=== PATIENT | female | born 1990 | race Two or more races ===

== ENCOUNTER 2016-08-28 17:09 | Outpatient (CLI) | payer BC ==
[2016-08-28] MEDS ORDERED: Lactated Ringers 1,000 ML IV SCH (19:15)
--- NOTE | 2016-08-28 22:53 | HP ---
DATE OF : 1990 PRIMARY CARE PHYSICIAN: None PCP CHIEF COMPLAINT: Fall. HISTORY: This is a 25-year-old female. She is -0-0-1. She slipped on the ice in her driveway and fell on her back. She denies hitting her stomach. She has been having crampiness throughout her early and she noted the cramping increased after the fall and she experienced low back pain, therefore she called the office and she was instructed to come to Labor and Delivery for further evaluation. She is currently 23 weeks and 5 days gestation. She is blood type O positive, rubella immune. She has had one prior vaginal delivery. She did have cramping and contractions at approximately 28 weeks with that , but delivered at term. She denies any vaginal bleeding, vaginal discharge, loss of fluid. She reports positive movement, but some increase in the tightness and cramping since the time of the fall. She denies past surgical history. PAST MEDICAL HISTORY: Negative for chronic illness. 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 She is sexually active. She denies use of tobacco. She used alcohol prior to the , but none during the . She is . She denies use of any street drugs. REVIEW OF SYSTEMS: CONSTITUTIONAL: Negative for headache or visual changes. GI: Negative. CARDIOVASCULAR: Negative. PULMONARY: Negative. DERMATOLOGY: Negative. MUSCULOSKELETAL: Negative except for the low back pain. PHYSICAL EXAMINATION: VITAL SIGNS: Temperature is 97.1, blood pressure is 126/59, pulse is 78, respiratory rate is 18. heart tones are 135 with moderate variability, accelerations present up to 15 beats per minute. There are occasional variable decelerations. Contractions initially were every 2-3 minutes, after hydration they have spaced out to every 10-15 minutes and in the most recent 30 minutes has not had any contractions. GENERAL: She is alert and oriented. She is in no acute distress. NECK: Supple without lymphadenopathy or thyromegaly. BACK: Examination reveals no CVA tenderness. She is slightly tender over the sacral area. ABDOMEN: Soft, gravid, nontender. Fundus is soft. No palpable contractions at this time. EXTREMITIES: Trace edema. ASSESSMENT AND PLAN: A 23 and 5/7th week intrauterine with trauma due to a fall in the driveway. heart tones are category 1; however, she is having irregular contractions. They have improved with IV hydration; however, we will proceed with abruption labs including CBC, PT, PTT and Kleihauer-Betke, and fibrinogen. Due to her history of contractions and sensation of low back and pelvic pressure, we will proceed with a transvaginal ultrasound for cervical length. Abdominal ultrasound will be performed for evaluation of the placenta, although I reviewed with her that contractions and labs are more sensitive than the ultrasound. She will be monitored a minimum of 4 hours. If contractions resolve by that time, she may be dismissed. If contractions persist, she will be monitored for full 24 hours. ASHLEIGH / AN /[id number]
--- NOTE | 2016-08-31 19:18 | US ---
EXAM DATE: 08/28/16 PATIENT'S AGE: 25 Patient: VLAD TRAVIS Facility: [place], [place] Site . Site : 1990 Study: US OB Pelvis [id number]/10/2017 8:49:01 PM Ordering Physician: Timmy Delvalle Final Report: INDICATION: Fall, evaluate placenta and check cervical length TECHNIQUE: Ultrasound OB pelvis transabdominal. Real-time doyle-scale imaging of the fetus was performed as well as color Doppler imaging of the placenta. COMPARISON: None FINDINGS: Sonographic imaging demonstrates a single living intrauterine gestation. Fetus demonstrates a regular cardiac rate of 142 beats per minute. The placenta lies posterior without evidence of placental abruption. Amniotic fluid volume appears normal with an DAMON of 17.5 cm. Maternal cervical length is 4.9 cm. IMPRESSION: 1.Single viable intrauterine . 2.No evidence for placental abruption. 3. Maternal cervical length is 4.9 cm. Dictated by Paige Paul MD @ Aug 28 2016 8:54PM (Electronic Signature) Report Signed by Proxy and Original Signed Document filed in the Medical Record. MTDD
--- NOTE | 2016-09-01 10:32 | US ---
EXAM DATE: 08/28/16 PATIENT'S AGE: 25 Patient: VLAD TRAVIS Facility: [facility] Site . Site : 1990 Study: US-OB Pelvis [id number]/10/2017 8:49:01 PM Ordering Physician: Timmy Delvalle Final Report: INDICATION: Fall, evaluate placenta and check cervical length TECHNIQUE: Ultrasound OB pelvis transabdominal. Real-time doyle-scale imaging of the fetus was performed as well as color Doppler imaging of the placenta. COMPARISON: None FINDINGS: Sonographic imaging demonstrates a single living intrauterine gestation. Fetus demonstrates a regular cardiac rate of 142 beats per minute. The placenta lies posterior without evidence of placental abruption. Amniotic fluid volume appears normal with an DAMON of 17.5 cm. Maternal cervical length is 4.9 cm. IMPRESSION: 1.Single viable intrauterine . 2.No evidence for placental abruption. 3. Maternal cervical length is 4.9 cm. Dictated by Paige Paul MD @ Aug 28 2016 8:54PM Signed by: Paige Paul MD @08/28/2016 8:58:15 PM (Electronic Signature) Report Signed by Proxy and Original Signed Document filed in the Medical Record. MTDD
== END 2016-08-28 22:35 | disposition home or self-care (01) ==
LOC: MW.OBCHECK 17:09 → MW.OB 17:12 → MW.OBCHECK 22:35
PROVIDERS: ATTEND Obstetrics & Gynecology
DX: O26.892 Other specified pregnancy related conditions, second trimester (principal); Z3A.23 23 weeks gestation of pregnancy; M54.5 Low back pain; W18.39XA Other fall on same level, initial encounter; Y92.008 Other place in unspecified non-institutional (private) residence as the place of occurrence of the external cause
CPT/HCPCS: 36415; 59025; 76815; 76817; 85027; 85384; 85610; 85730; 96360; 96361; J7120

== ENCOUNTER 2016-10-28 17:02 | Outpatient (CLI) | payer BC | END 2016-10-28 18:42 | disposition home or self-care (01) | LOC: MW.OBCHECK 17:02 → MW.OB 17:03 → MW.OBCHECK 18:42 | PROVIDERS: ATTEND Obstetrics & Gynecology | DX: O99.89 Other specified diseases and conditions complicating pregnancy, childbirth and the puerperium (principal); M54.5 Low back pain | CPT/HCPCS: 59025; 81003 ==

== ENCOUNTER 2016-12-16 18:14 | Inpatient (IN) | payer BC ==
[2016-12-16] MEDS ORDERED: Misoprostol 200 MCG Tab PO PRN (18:40)
[2016-12-16] MEDS ORDERED: Sodium Chloride 0.9% 10 ML Syringe FLUSH PRN (18:40)
[2016-12-16] MEDS ORDERED: Lidocaine 1% 50 ML MDV INJECT PRN (18:40)
[2016-12-16] MEDS ORDERED: Nalbuphine 10 MG/1 ML Vial IVPUSH PRN (18:40)
[2016-12-16] MEDS ORDERED: Water For Irrigation,Sterile 1,000 ML Container IRR PRN (18:40)
[2016-12-16] MEDS ORDERED: Butorphanol 1 MG/ML SDV IVPUSH PRN (18:40)
[2016-12-16] MEDS ORDERED: Methylergonovine 0.2 MG/1 ML Amp IM PRN (18:40)
[2016-12-16] MEDS ORDERED: Carboprost Tromethamine 250 MCG/1 ML Amp IM PRN (18:40)
[2016-12-16] MEDS ORDERED: Sodium Chloride 0.9% 2.5 ML Syringe FLUSH PRN (18:40)
[2016-12-16] MEDS ORDERED: Lactated Ringers 1,000 ML IV SCH (18:45)
[2016-12-16] MEDS ORDERED: Oxytocin/Lactated Ringers 30 UNIT/500 ML BAG IV SCH (18:45)
[2016-12-16] MEDS ORDERED: Oxytocin 10 Units/1 ML SDV ONE (18:55)
[2016-12-16] MEDS ORDERED: Bisacodyl 10 MG Supp RECTAL PRN (19:08)
[2016-12-16] MEDS ORDERED: Lanolin 100% Cream 7 GM Tube TOP PRN (19:08)
[2016-12-16] MEDS ORDERED: Ibuprofen 400 MG Tab PO PRN (19:08)
[2016-12-16] MEDS ORDERED: Benzocaine/Menthol 20%-0.5% Spray 78 GM Cannister TOP PRN (19:08)
[2016-12-16] MEDS ORDERED: Witch Hazel Medicated Pads 40/Jar TOP PRN (19:08)
[2016-12-16] MEDS ORDERED: oxyCODONE 5 MG Tab PO PRN (19:08)
[2016-12-16] MEDS ORDERED: Acetaminophen 500 MG Tab PO PRN ×2 (19:08)
[2016-12-16] MEDS ORDERED: Docusate Sodium 100 MG Cap PO PRN (19:08)
[2016-12-16] MEDS ORDERED: Oxytocin 10 Units/1 ML SDV IM ONE (19:09)
[2016-12-16] MEDS: Ibuprofen 800 MG Tab PO PRN (20:28)
[2016-12-17] MEDS: Ibuprofen 800 MG Tab PO PRN ×2 (02:28→11:04)
--- NOTE | 2016-12-17 02:33 | OR ---
SURGEON: Laury Paula M.D. DATE OF PROCEDURE: 12/16/2016 PREOPERATIVE DIAGNOSES: 1. A 39 and 3 weeks intrauterine . 2. Active labor. POSTOPERATIVE DIAGNOSES: 1. A 39 and 3 weeks intrauterine . 2. Active labor. PROCEDURE: Spontaneous vaginal delivery, intact perineum, precipitous. ESTIMATED BLOOD LOSS: 300 mL. ANESTHESIA: None. COMPLICATIONS: None. FINDINGS: Viable male, score 8 at 1 minute, 9 at 5 minutes. Weight of 3030 g. Spontaneous delivery, intact placenta, 3-vessel cord. DISPOSITION: to nursery, mom in LDRP. DESCRIPTION OF PROCEDURE: Bebe is a 26-year-old, G2, P1-0-0-1, at 39 and 3 weeks gestational age, who presented the evening of 12/16/2016 with regular contractions every 3-5 minutes for the past 2 hours. On initial examination, she was found to be 7 cm, 100% effaced, 0 station. Membranes still intact. She was admitted. Routine labs were attempted to be drawn, but during this interval, she very quickly progressed to complete, with a sudden urge to push. I was called for her delivery, and on route, the patient delivered precipitously with attending nurse at her side. Upon my arrival, the patient was holding the who had good tone and good color. The cord was clamped x2 and cut. Cord blood was obtained. Light pressure was applied while the placenta was delivered spontaneously intact. Vigorous fundal uterine massage was applied with 10 units Pitocin was delivered IM. Upon inspection of cervix, vaginal sidewalls, perineum, these were found to be intact. Uterus remained firm. Hemostasis evident. Sponge count is correct. The patient remained in LDRP. Infant in nursery. RONALDO / AN /[id number]
--- NOTE | 2016-12-17 08:48 | PCM.PNPP ---
- General Info Date of Service: 12/17/16 Functional Status: Reports: pain controlled, tolerating diet, ambulating, urinating - Review of Systems General: Reports: No Symptoms HEENT: Reports: no symptoms Pulmonary: Reports: no symptoms Cardiovascular: Reports: No Symptoms Gastrointestinal: Reports: No symptoms Genitourinary: Reports: no symptoms Musculoskeletal: Reports: no symptoms Skin: Reports: no symptoms Neurological: Reports: No Symptoms Psychiatric: Reports: no symptoms - General Info Date of Service: 12/17/16 - Patient Data Vital Signs - most recent: Last Vital Signs Temp 36.8 C 12/17/16 07:40 Pulse 66 12/17/16 07:40 Resp 16 12/17/16 07:40 BP 116/66 12/17/16 07:40 Pulse Ox 97 12/17/16 07:40 Weight - most recent: 83.007 kg Lab Results - last 24 hrs: Laboratory Results - last 24 hr 12/16/16 12/16/16 12/17/16 Range/Units 19:00 19:00 05:16 WBC 12.95 H (4.0-11.0) K/uL RBC 3.91 L (4.30-5.90) M/uL Hgb 12.4 11.3 L (12.0-16.0) g/dL Hct 35.5 L 32.7 L (36.0-46.0) % MCV 90.8 (80.0-98.0) fL MCH 31.7 (27.0-32.0) pg MCHC 34.9 (31.0-37.0) g/dL RDW Std Deviation 42.6 (28.0-62.0) fl RDW Coeff of Cirilo 13 (11.0-15.0) % Plt Count 197 (150-400) K/uL MPV 10.40 (7.40-12.00) fL Nucleated RBC % 0.0 /100WBC Nucleated RBCs # 0 K/uL Blood Type O POSITIVE Antibody Screen NEGATIVE Med Orders - Current: Current Medications Acetaminophen (Tylenol Extra Strength) 500 mg PO Q4H PRN PRN Reason: Pain Acetaminophen (Tylenol Extra Strength) 1,000 mg PO Q4H PRN PRN Reason: Pain Benzocaine/Menthol (Dermoplast Pain Relief 20%-0.5% [place]) 78 gm TOP ASDIRECTED PRN PRN Reason: Perineal Comfort Measure Last Admin: 12/16/16 20:29 Dose: 1 applic Bisacodyl (Dulcolax) 10 mg RECTAL .ONCE PRN PRN Reason: Constipation Carboprost Tromethamine (Hemabate Ds) 250 mcg IM ASDIRECTED PRN PRN Reason: Post Hemorrhage Docusate Sodium (Colace) 100 mg PO BID PRN PRN Reason: Constipation Emollient Ointment (Lansinoh Hpa) 0 gm TOP ASDIRECTED PRN PRN Reason: Sore Nipples Last Admin: 12/16/16 20:30 Dose: 1 applic Lactated Ringer's (Ringers, Lactated) 1,000 mls @ 150 mls/hr IV ASDIRECTED SHANTAL Oxytocin/Lactated Ringer's (Pitocin In Lr 30 Units/500 Ml) 30 unit in 500 mls @ 2 mls/hr IV TITRATE SHANTAL; 2 MUNITS/MIN PRN Reason: Protocol Stop: 12/17/16 18:44 Ibuprofen (Motrin) 400 mg PO Q4H PRN PRN Reason: Pain Ibuprofen (Motrin) 800 mg PO Q6H PRN PRN Reason: Pain Last Admin: 12/17/16 02:28 Dose: 800 mg Methylergonovine Maleate (Methergine) 0.2 mg IM ASDIRECTED PRN PRN Reason: Post Hemorrhage Oxycodone HCl (Oxycodone) 5 mg PO Q2H PRN PRN Reason: Pain Witch Kaela (Tucks) 1 pad TOP ASDIRECTED PRN PRN Reason: comfort care Last Admin: 12/16/16 20:29 Dose: 1 applic Discontinued Medications Butorphanol Tartrate (Stadol) 1 mg IVPUSH Q1H PRN PRN Reason: Pain Lidocaine HCl (Xylocaine 1%) 50 ml INJECT .ONCE PRN PRN Reason: Laceration repair Misoprostol (Cytotec) 200 mcg PO .ONCE PRN PRN Reason: Post Hemorrhage Nalbuphine HCl (Nubain) 10 mg IVPUSH Q1H PRN PRN Reason: Pain (severe 7-10) Stop: 12/16/16 20:41 Oxytocin (Pitocin) Confirm Administered Dose 10 unit .ROUTE .[facility] Stop: 06/28/17 18:56 Last Admin: 12/16/16 18:57 Dose: 10 unit Oxytocin (Pitocin) 10 unit IM ONETIME ONE Stop: 12/16/16 19:10 Sodium Chloride (Saline Flush) 10 ml FLUSH ASDIRECTED PRN PRN Reason: Keep Vein Open Sodium Chloride (Saline Flush) 2.5 ml FLUSH ASDIRECTED PRN PRN Reason: Keep Vein Open Sterile Water (Sterile Water For Irrigation) 1,000 ml IRR ASDIRECTED PRN PRN Reason: delivery - Interaction Infant Disposition, : in Room with Family Infant Interaction: Holding Infant Feeding: Attempted ; Nursed Fair/Poor Support Person: Significant Other - Recovery Exam Fundal Tone: Firm Fundal Level: At Umbilicus Fundal Placement: Midline Lochia Amount: Scant Lochia Color: Rubra/Red Perineum Description: Intact, Minimal Bruising/Swelling Episiotomy/Laceration: None Bladder Status: Voiding - Exam General: alert, oriented Neck: supple Lungs: Clear to auscultation, Normal respiratory effort Cardiovascular: Regular Rate, Regular Rhythm Abdomen: bowel sounds present, soft, no tenderness Extremities: no calf tenderness Neurological: no new focal deficit Psy/Mental Status: alert, normal affect, normal mood - Problem List & Annotations (1) Vaginal delivery SNOMED Code(s): 021649387 Code(s): O80 - ENCOUNTER FOR FULL-TERM UNCOMPLICATED DELIVERY Status: Acute Current Visit: Yes - Problem List Review Problem List Initiated/Reviewed/Updated: Yes - Assessment Assessment:: PPD#1 S/p SAVD Doing well Desires discharge home today - Plan Plan:: Discharge home today Pelvic rest for 6wks Bleeding precautions given Thrombotic precautions given Infection precautions given blues/depression precautions given
[2016-12-17 20:22] VITALS: BP 123/57
== END 2016-12-17 22:20 | disposition home or self-care (01) | DRG 560 ==
LOC: MW.OBCHECK 18:14 → MW.OB 18:19 → MW.OBCHECK 18:40 → MW.OB 18:40 → OBSVTOIN 18:47
PROVIDERS: ADMIT Obstetrics & Gynecology; ATTEND Obstetrics & Gynecology
PROC: 10E0XZZ Delivery of Products of Conception, External Approach (ICD-10-PCS; principal; 2016-12-16)
DX: O62.3 Precipitate labor (principal); Z3A.39 39 weeks gestation of pregnancy; Z37.0 Single live birth
CPT/HCPCS: 36415; 59025; 85014; 85018; 85027; 86850; 86900; 86901; A9270-GY; J2590